=== PATIENT | female | born 1940 | race Caucasian/White ===

== ENCOUNTER 2019-11-27 10:05 | Outpatient (REF) | payer MEDICARE, SELFPAY ==
[2019-11-27 13:42] LABS: Hematocrit 45.3 % (37-47); Hemoglobin 14.8 g/dl (12.0-16.0); Mean Corpuscular HGB Conc 32.7 g/dl (31.0-35.0); Mean Corpuscular Volume 88.6 fL (80-98); Mean Platelet Volume 11.3 fL (9.4-12.3); Platelet Count 185 X10*3/uL (160-400); Red Blood Count 5.11 X10*6/uL (4.20-5.50); Red Cell Distribution Width 13.5 % (11.0-16.0); White Blood Count 4.7 X10*3/uL (4.8-10.8)
[2019-11-27 14:39] LABS: Alanine Aminotransferase 31 U/L (0-31); Albumin Level 4.5 g/dL (3.5-5.0); Alkaline Phosphatase 74 U/L (39-117); Anion Gap 13 (12-20); Aspartate Amino Transferase 30 U/L (5-31); Bilirubin Direct 0.5 mg/dL (0.0-0.5); Bilirubin Total 1.3 mg/dL (0.0-1.0); Blood Urea Nitrogen 14 mg/dL (9-16); Carbon Dioxide 31 mmol/L (22-29); Chloride 103 mmol/L (96-108); Cholesterol 150 mg/dL; Estimated Glomerular Filt Rate > 60; Glucose Fasting 108 mg/dL (60-99); HDL Cholesterol 45 mg/dL; LDL Cholesterol Calculated 74 mg/dl; Potassium 4.1 mmol/l (3.3-5.1); Sodium 143 mmol/L (135-145); Total Protein 7.2 g/dL (6.5-8.0); Triglycerides 158 mg/dL
== END 2019-11-27 10:06 | disposition home or self-care (01) ==
LOC: HO.10HDL 10:05
DX: I10 Essential (primary) hypertension (principal); E78.5 Hyperlipidemia, unspecified
CPT/HCPCS: 36415; 80053; 80061; 80076; 82248; 82306; 85027

== ENCOUNTER 2020-05-28 08:48 | Outpatient (REF) | payer MEDICARE, SELFPAY ==
[2020-05-28 10:12] LABS: MANUAL DIFF FLAG NO
[2020-05-28 10:19] LABS: Basophils Absolute Auto 0.1 X10*3/uL (0.0-0.2); Basophils Percent Auto 1.1 % (0-2); Eosinophils Absolute Auto 0.1 X10*3/uL (0.0-0.4); Eosinophils Percent Auto 1.2 % (0-4); Hematocrit 44.8 % (37-47); Hemoglobin 14.5 g/dl (12.0-16.0); Imm Gran Abs Auto 0.02 X10*3/uL (0.00-0.03); Imm Gran Pct Auto 0.3 % (0.0-0.4); Lymphocytes Absolute Auto 2.7 X10*3/uL (1.2-4.9); Lymphocytes Percent Auto 37.1 % (20-40); Mean Corpuscular HGB Conc 32.4 g/dl (31.0-35.0); Mean Corpuscular Hemoglobin 28.3 pg (27.0-33.0); Mean Corpuscular Volume 87.5 fL (80-98); Mean Platelet Volume 11.9 fL (9.4-12.3); Monocytes Absolute Auto 0.6 X10*3/uL (0.1-1.2); Monocytes Percent Auto 8.6 % (2-11); Neutrophils Absolute Auto 3.8 X10*3/uL (2.0-8.3); Neutrophils Percent Auto 51.7 % (45-73); Platelet Count 208 X10*3/uL (160-400); Red Blood Count 5.12 X10*6/uL (4.20-5.50); Red Cell Distribution Width 13.9 % (11.0-16.0); White Blood Count 7.4 X10*3/uL (4.8-10.8)
[2020-05-28 10:43] LABS: Alanine Aminotransferase 26 U/L (0-31); Albumin Level 4.5 g/dL (3.5-5.0); Alkaline Phosphatase 77 U/L (39-117); Anion Gap 16 (12-20); Aspartate Amino Transferase 26 U/L (5-31); Bilirubin Total 1.5 mg/dL (0.0-1.0); Blood Urea Nitrogen 16 mg/dL (9-16); Calcium 9.1 mg/dL (8.4-10.2); Carbon Dioxide 27 mmol/L (22-29); Chloride 104 mmol/L (96-108); Cholesterol 149 mg/dL; Estimated Glomerular Filt Rate > 60; Glucose Fasting 111 mg/dL (60-99); HDL Cholesterol 50 mg/dL; LDL Cholesterol Calculated 75 mg/dl; Potassium 3.6 mmol/L (3.3-5.1); Sodium 143 mmol/L (135-145); Total Protein 7.2 g/dL (6.5-8.0); Triglycerides 120 mg/dL
== END 2020-05-28 08:49 | disposition home or self-care (01) ==
LOC: HO.10HDL 08:48
PROVIDERS: Visit Provider Internal Medicine
DX: I10 Essential (primary) hypertension (principal); E78.00 Pure hypercholesterolemia, unspecified; M54.9 Dorsalgia, unspecified
CPT/HCPCS: 36415; 80053; 80061; 85025

== ENCOUNTER 2020-06-03 10:13 | Outpatient (REF) | payer MEDICARE, SELFPAY ==
[2020-06-03 13:48] LABS: Glucose Urine UA NEG (NEG); Leukocyte Esterase Urine TRACE (NEG); Nitrite Urine NEG (NEG); Urine Blood NEG (NEG); Urine Ketones NEG (NEG); Urine Protein NEG (NEG-TRACE)
[2020-06-03 13:49] LABS: Appearance Urine CLEAR; Color Urine YELLOW
[2020-06-03 13:58] LABS: RBC Urine 0 /HPF (0); Squamous Epithelial Cell Urine TRACE /LPF; WBC Urine 0-2 /HPF (0-4)
== END 2020-06-03 10:14 | disposition home or self-care (01) ==
LOC: HO.10HDL 10:13
PROVIDERS: Visit Provider Internal Medicine
DX: I10 Essential (primary) hypertension (principal); E78.00 Pure hypercholesterolemia, unspecified; M54.9 Dorsalgia, unspecified
CPT/HCPCS: 81001

== ENCOUNTER 2020-12-09 09:31 | Outpatient (REF) | payer MEDICARE, SELFPAY ==
[2020-12-09 10:44] LABS: Estimated Average Glucose 117 mg/dL; Hemoglobin A1c % 5.7 %
[2020-12-09 10:52] LABS: Anion Gap 14 (12-20); Blood Urea Nitrogen 14 mg/dL (9-16); Carbon Dioxide 26 mmol/L (22-29); Chloride 104 mmol/L (96-108); Estimated Glomerular Filt Rate > 60; Glucose Random 128 mg/dL (60-115); Potassium 3.5 mmol/L (3.3-5.1); Sodium 140 mmol/L (135-145)
== END 2020-12-09 09:32 | disposition home or self-care (01) ==
LOC: HO.10HDL 09:31
PROVIDERS: Visit Provider Internal Medicine
DX: I10 Essential (primary) hypertension (principal); R73.03 Prediabetes
CPT/HCPCS: 36415; 80048; 83036

== ENCOUNTER 2021-07-31 10:03 | Outpatient (REF) | payer MEDICARE, SELFPAY ==
--- NOTE | ~2021-07-31 | MM_ITS ---
EXAMINATION: MM SCREENING DIGITAL BREAST TOMOSYNTHESIS, BILATERAL CLINICAL INFORMATION: Screening. Asymptomatic. Left breast excisional biopsy. The lifetime risk of breast cancer based on the Tyrer-Cuzick Model is 2%. COMPARISON: Mammography: 12/02/2016 and studies dating back to 08/21/2011. TECHNIQUE: Digital breast tomosynthesis is performed in both the craniocaudal and mediolateral oblique views along with computer-aided detection (CAD). Synthesized 2D images are generated from the tomosynthesis. FINDINGS: There are scattered areas of fibroglandular density (ACR BI-RADS breast composition Category b). There is multiplicity and bilaterality of slowly increasing calcifications with no one more suspicious grouping identified. 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 MM/MM tomosynthesis screening BI IMPRESSION: No specific mammographic evidence of malignancy. ASSESSMENT: BI-RADS 2: Benign RECOMMENDATION: Routine annual mammography screening. This patient's information was entered into a reminder system with a target due date for their next mammogram.
--- NOTE | ~2021-07-31 | MM_ITS ---
EXAMINATION: BONE DENSITOMETRY CLINICAL INDICATION: Menopause. COMPARISON: This is the patient's baseline examination. TECHNIQUE: Using a [employer] DXA System (software version: 13.1) manufactured by [employer], dual-energy x-ray absorptiometry was performed of the lumbar spine and left hip. The images are of good technical quality. Summary results are attached. FINDINGS: AP SPINE L1-L2 (excluding L3 and L4): The data of L1-L4 has been changed to exclude the L3 and L4 vertebral bodies, because degenerative changes at these levels may cause overestimation of lumbar spine density. BMD 0.694 g/cm2, Z-score -2.0, T-score -3.9, osteoporosis. LEFT FEMUR, NECK: BMD 0.726 g/cm2, Z-score 0.0, T-score -2.2, osteopenia. LEFT FEMUR, TOTAL: BMD 0.783 g/cm2, Z-score 0.3, T-score -1.8, osteopenia. IDENTIFIED RISK FACTORS: Menopausal. HISTORY OF FRACTURE: None listed. MEDICATIONS: Calcium supplement and/or multivitamin. MM/XR DEXA axial skeleton IMPRESSION: 1. DIAGNOSIS: Osteoporosis based on the lowest T-score value of -3.9 in the lumbar spine applying World Health Organization criteria. 2. 10-YEAR FRACTURE RISK PREDICTION, FRAX: According to the guidelines, FRAX calculation should only be performed on patients in the osteopenia bone density category. Therefore, FRAX was not performed on this patient. 3. Treatment Recommendations: NOF guidelines recommend consideration for treatment in postmenopausal women and men age 50 and older presenting with the following: -A hip or vertebral (clinical or morphometric) fracture. -T-score less than or equal to -2.5 at the femoral neck or spine after appropriate evaluation to exclude secondary causes. -Low bone mass at the hip or spine and a 10-year fracture probability by FRAX of greater than or equal to 3% for hip fracture or greater than or equal to 20% for major osteoporotic fracture based on the [place] adapted WHO algorithm. 4. Other Recommendations: All treatment decisions require clinical judgment and consideration of individual patient factors, including patient preferences, comorbidities, previous drug use, risk factors not captured in the FRAX model (e.g. frailty, falls, vitamin D deficiency, increased bone turnover, interval significant decline in bone density) and possible under or overestimation of fracture risk by FRAX. Additional medical evaluation for secondary cause of low bone mineral density may be appropriate. FUTURE SCAN RECOMMENDATION: People with diagnosed cases of osteoporosis or at high risk for fracture should have regular bone mineral density tests. For patients eligible for Medicare, routine testing is allowed once every 2 years. The testing frequency can be increased to one year for patients who have rapidly progressing disease, those who are receiving or discontinuing medical therapy to restore bone mass, or have additional risk factors.
== END 2021-07-31 10:04 | disposition home or self-care (01) ==
LOC: HO.MAMMO 10:03
PROVIDERS: PCP Internal Medicine; Visit Provider Internal Medicine
DX: Z12.31 Encounter for screening mammogram for malignant neoplasm of breast (principal); Z13.820 Encounter for screening for osteoporosis; Z78.0 Asymptomatic menopausal state
CPT/HCPCS: 77063; 77067; 77080

== ENCOUNTER 2021-09-17 08:02 | Outpatient (REF) | payer MEDICARE, SELFPAY ==
[2021-09-17 10:38] LABS: MANUAL DIFF FLAG NO
[2021-09-17 10:45] LABS: Basophils Absolute Auto 0.1 X10*3/uL (0.0-0.2); Basophils Percent Auto 1.1 % (0-2); Eosinophils Absolute Auto 0.1 X10*3/uL (0.0-0.4); Eosinophils Percent Auto 1.6 % (0-4); Hematocrit 43.2 % (37.0-47.0); Hemoglobin 14.2 g/dl (12.0-16.0); Imm Gran Abs Auto 0.01 X10*3/uL (0.00-0.03); Imm Gran Pct Auto 0.2 % (0.0-0.4); Lymphocytes Absolute Auto 2.4 X10*3/uL (1.2-4.9); Lymphocytes Percent Auto 43.2 % (20-40); Mean Corpuscular HGB Conc 32.9 g/dl (31.0-35.0); Mean Corpuscular Hemoglobin 28.9 pg (27.0-33.0); Mean Corpuscular Volume 87.8 fL (80.0-98.0); Mean Platelet Volume 11.4 fL (9.4-12.3); Monocytes Absolute Auto 0.7 X10*3/uL (0.1-1.2); Monocytes Percent Auto 12.8 % (2-11); Neutrophils Absolute Auto 2.2 x10*3/uL (2.0-8.3); Neutrophils Percent Auto 41.1 % (45-73); Platelet Count 192 X10*3/uL (160-400); Red Blood Count 4.92 X10*6/uL (4.20-5.50); Red Cell Distribution Width 13.2 % (11.0-16.0); White Blood Count 5.5 X10*3/uL (4.8-10.8)
[2021-09-17 10:54] LABS: Estimated Average Glucose 114 mg/dL; Hemoglobin A1c % 5.6 %
[2021-09-17 10:55] LABS: Alanine Aminotransferase 43 U/L (0-31); Albumin Level 4.3 g/dL (3.5-5.0); Alkaline Phosphatase 92 U/L (39-117); Anion Gap 13 (12-20); Aspartate Amino Transferase 34 U/L (5-31); Bilirubin Total 1.2 mg/dL (0.0-1.0); Blood Urea Nitrogen 15 mg/dL (9-16); Calcium 8.7 mg/dL (8.4-10.2); Carbon Dioxide 28 mmol/L (22-29); Chloride 104 mmol/L (96-108); Cholesterol 160 mg/dL; Estimated Glomerular Filt Rate > 60; Glucose Fasting 109 mg/dL (60-99); HDL Cholesterol 50 mg/dL; LDL Cholesterol Calculated 81 mg/dl; Potassium 3.5 mmol/L (3.3-5.1); Sodium 141 mmol/L (135-145); Total Protein 7.1 g/dL (6.5-8.0); Triglycerides 145 mg/dL
== END 2021-09-17 08:03 | disposition home or self-care (01) ==
LOC: HO.10HDL 08:02
PROVIDERS: Visit Provider Internal Medicine
DX: I10 Essential (primary) hypertension (principal); E78.00 Pure hypercholesterolemia, unspecified; R73.03 Prediabetes
CPT/HCPCS: 36415; 80053; 80061; 83036; 85025

== ENCOUNTER → 2022-02-13 10:54 | Outpatient (BNVA) | payer MEDICARE, SELFPAY | PROVIDERS: PCP Internal Medicine; Visit Provider Surgery | DX: L98.9 Disorder of the skin and subcutaneous tissue, unspecified (principal) | CPT/HCPCS: 99202 ==

== ENCOUNTER 2022-03-12 12:47 | Outpatient (REF) | payer MEDICARE, SELFPAY ==
[2022-03-12 12:53] VITALS: BP 162/78; PULSE 107; RESP 16; TEMP 37.2; O2SAT 98; BMI 27.3
[2022-03-12 13:21] VITALS: BP 145/79; PULSE 97; RESP 16; O2SAT 98
--- NOTE | 2022-03-13 13:58 | P.OP_ITS ---
Operative Note Operative Note Date of Service: 03/13/22 Narrative: Preoperative diagnosis: Skin lesion nasal tip Postoperative diagnosis: Same Procedure: Punch biopsy skin lesion nasal tip Surgeon: Cb Orourke MD Manager Of Marketing: MATT Cohen Anesthesia: Local Sensorcaine 0.5% with epinephrine Indications for procedure: 81-year-old female patient presenting with a raised red lesion located at the tip of the nose to the right of midline measuring approximately 5 mm in diameter. She presents today for punch biopsy for diagnostic purposes. Operative findings: As noted above limit her lesion at but knows to the right of midline. Specimen: Punch biopsy of nose Estimated blood loss: 1 mL Complications: None Procedure details: Patient was brought to the minor surgery suite and placed in a supine sitting position. The site of surgeries confirmed by the patient on the tip of the nose. After assuring informed consent the skin was prepped with Betadine and draped in a sterile fashion. Local anesthesia was then infiltrated below the lesion. A 3.5 mm punch biopsy was then obtained of the margin of the lesion to the right of midline. The specimen was sent to pathology for further examination. Skin was then closed using a single interrupted 5 0 nylon suture. A sterile bandage and bacitracin ointment was then applied. The patient tolerated the procedure well. She was discharged to home in stable condition.
== END 2022-03-12 12:48 | disposition home or self-care (01) ==
LOC: HO.MS 12:47
PROVIDERS: PCP Internal Medicine; Visit Provider Surgery
PROC: (CPT 11104; principal; 2022-03-12 13:00)
DX: C44.311 Basal cell carcinoma of skin of nose (principal); L98.9 Disorder of the skin and subcutaneous tissue, unspecified
CPT/HCPCS: 11104; 88305

== ENCOUNTER → 2022-03-20 10:48 | Outpatient (BNVA) | payer MEDICARE, SELFPAY | PROVIDERS: PCP Internal Medicine; Referring Provider Internal Medicine; Visit Provider Surgery | DX: C44.311 Basal cell carcinoma of skin of nose (principal) | CPT/HCPCS: 99212 ==

== ENCOUNTER 2022-05-21 08:45 | Outpatient (REF) | payer MEDICARE, SELFPAY ==
[2022-05-21 11:28] LABS: Alanine Aminotransferase 24 U/L (0-31); Albumin Level 4.3 g/dL (3.5-5.0); Alkaline Phosphatase 77 U/L (39-117); Anion Gap 14 (12-20); Aspartate Amino Transferase 25 U/L (5-31); Bilirubin Total 1.6 mg/dL (0.0-1.0); Blood Urea Nitrogen 16 mg/dL (9-16); Calcium 9.4 mg/dL (8.4-10.2); Carbon Dioxide 27 mmol/L (22-29); Chloride 105 mmol/L (96-108); Estimated Glomerular Filt Rate > 60; Glucose Random 134 mg/dL (60-115); Potassium 3.6 mmol/L (3.3-5.1); Sodium 142 mmol/L (135-145); Total Protein 7.1 g/dL (6.5-8.0)
== END 2022-05-21 08:46 | disposition home or self-care (01) ==
LOC: HO.10HDL 08:45
PROVIDERS: Visit Provider Internal Medicine
DX: I10 Essential (primary) hypertension (principal); R79.89 Other specified abnormal findings of blood chemistry
CPT/HCPCS: 36415; 80053

== ENCOUNTER 2022-10-22 09:00 | Outpatient (REF) | payer MEDICARE, SELFPAY ==
[2022-10-22 10:48] LABS: MANUAL DIFF FLAG NO
[2022-10-22 10:56] LABS: Basophils Absolute Auto 0.1 X10*3/uL (0.0-0.2); Basophils Percent Auto 1.1 % (0-2); Eosinophils Absolute Auto 0.1 X10*3/uL (0.0-0.4); Eosinophils Percent Auto 0.8 % (0-4); Hematocrit 44.7 % (37.0-47.0); Hemoglobin 14.8 g/dl (12.0-16.0); Imm Gran Abs Auto 0.01 X10*3/uL (0.00-0.03); Imm Gran Pct Auto 0.2 % (0.0-0.4); Lymphocytes Absolute Auto 2.4 X10*3/uL (1.2-4.9); Lymphocytes Percent Auto 38.1 % (20-40); Mean Corpuscular HGB Conc 33.1 g/dl (31.0-35.0); Mean Corpuscular Volume 87.6 fL (80.0-98.0); Mean Platelet Volume 11.1 fL (9.4-12.3); Monocytes Absolute Auto 0.7 X10*3/uL (0.1-1.2); Monocytes Percent Auto 11.9 % (2-11); Neutrophils Percent Auto 47.9 % (45-73); Platelet Count 217 X10*3/uL (160-400); Red Cell Distribution Width 13.2 % (11.0-16.0); White Blood Count 6.2 X10*3/uL (4.8-10.8)
[2022-10-22 11:24] LABS: Estimated Average Glucose 108 mg/dL; Hemoglobin A1C 137.2376 umol/L; Hemoglobin A1c % 5.4 % (<6.0)
[2022-10-22 11:28] LABS: Anion Gap 12 (12-20); Blood Urea Nitrogen 16 mg/dL (9-16); Calcium 9.3 mg/dL (8.4-10.2); Carbon Dioxide 28 mmol/L (22-29); Chloride 107 mmol/L (96-108); Cholesterol 161 mg/dL (<200); Estimated Glomerular Filt Rate > 60; Glucose Random 103 mg/dL (60-115); Potassium 3.6 mmol/L (3.3-5.1); Sodium 143 mmol/L (135-145)
[2022-10-22 11:31] LABS: Vitamin D 25-OH Total 58.3 ng/mL (>30)
== END 2022-10-22 09:01 | disposition home or self-care (01) ==
LOC: HO.10HDL 09:00
PROVIDERS: Visit Provider Internal Medicine
DX: I10 Essential (primary) hypertension (principal); R73.03 Prediabetes; M81.0 Age-related osteoporosis without current pathological fracture
CPT/HCPCS: 36415; 80048; 82306; 82465; 83036; 85025

== ENCOUNTER 2024-06-28 13:09 | Outpatient (AMB) | payer MEDICARE, SELFPAY ==
--- NOTE | 2024-06-20 15:37 | MHC.PC.OV ---
Intake Visit Reasons: Routine Bee Producer Required: No Accompanied by: Self / Same As Patient Allergies Penicillins [PENICILLINS] Allergy (Intermediate, Unverified 03/20/22 10:58) RASH Sulfa (Sulfonamide Antibiotics) [SULFA (SULFONAMIDE ANTIBIOTICS)] Allergy (Intermediate, Unverified 03/20/22 10:58) RASH From DARVON Allergy (Intermediate, Uncoded 03/20/22 10:58) VOMITING Darvon Allergy (Unknown, Uncoded 03/20/22 10:58) vomiting Penicillin Allergy (Unknown, Uncoded 03/20/22 10:58) rash sulfa Allergy (Unknown, Uncoded 03/20/22 10:58) rash Tobacco use date assessed: 06/21/24 Fall risk assessment: No Falls in past year Last assessed Fall Risk: 06/21/24 Dental Screening Dental Screen Date: 06/28/24 Did you have a dental visit in the last 12 months?: Yes Did you have a dental problem in the last 6 months where you did not have access to dental care?: No [facility] Medical History Hypertension Osteopenia Osteoporosis Transaminitis Surgical History History of surgical biopsy (03/12/22) Family History Sister Breast cancer Social History Alcohol intake: never Patient Tobacco Use Status: Never used Tobacco Questionnaire PHQ-9 Over the last 2 weeks, how often have you been bothered by any of the following problems? 1. Little interest or pleasure in doing things: not at all 2. Feeling down, depressed, or hopeless: not at all 3. Trouble falling or staying asleep, or sleeping too much: not at all 4. Feeling tired or having little energy: not at all 5. Poor appetite or overeating: not at all 6. Feeling bad about yourself - or that you are a failure or have let yourself or your family down: not at all 7. Trouble concentrating on things, such as reading the newspaper or watching television: not at all 8. Moving or speaking so slowly that other people could have noticed. Or the opposite - being so fidgety or restless that you have been moving around a lot more than usual: not at all 9. Thoughts that you would be better off or of hurting yourself in some way: not at all Total score: 0 Source: Developed by Drs. Maycol Apple, Lisette Teixeira, Sg Schrader and colleagues, with an educational john from [employer]. AUDIT C Alcohol Use Questionnaire (AUDIT-C) 1. How often do you have a drink containing alcohol?: Never 3. How often do you have six or more drinks on one occasion?: Never Total Score: 0 RACHEL-7 AMB Questionnaire RACHEL-7 Date RACHEL - 7 assessed: 06/21/24 Feeling nervous, anxious, or on edge: 0 = Not at all Not being able to stop or control worryin = Not at all Worrying too much about different things: 0 = Not at all Trouble relaxin = Not at all Being so restless that it is hard to sit still: 0 = Not at all Becoming easily annoyed or irritable: 0 = Not at all Feeling afraid as if something awful might happen: 0 = Not at all Total RACHEL-7 score (0-4 normal; 5-9 mild; 10-14 moderate; 15-21 severe): 0 Source: Developed by Drs. Maycol Apple, Sg Randle and colleagues, with an educational john from [employer]. Physical exam (Primary Care) Tobacco/Smoking Status: Tobacco use Status Patient Tobacco Use Status Never used Tobacco 03/12/22 12:53 Coding
--- NOTE | 2024-06-28 13:14 | A.OFFPC_ITS ---
Vital Signs 06/28/24 13:15 Height 5 ft Weight 142 lb BMI 27.7 BP 142/80 H Blood Pressure Location Rt brachial Position Sitting Pulse 95 Pulse Source Pulse Oximeter Temp 97.8 F Temp Source Axillary Pulse Oximetry (%) 98 Oxygen Delivery Method Room Air Intake Visit Reasons: Routine Shirt Presser Required: No Accompanied by: Self / Same As Patient Allergies Penicillins [PENICILLINS] Allergy (Intermediate, Verified 06/28/24 13:19) RASH Sulfa (Sulfonamide Antibiotics) [SULFA (SULFONAMIDE ANTIBIOTICS)] Allergy (Intermediate, Verified 06/28/24 13:19) RASH From DARVON Allergy (Intermediate, Uncoded 03/20/22 10:58) VOMITING Darvon Allergy (Unknown, Uncoded 03/20/22 10:58) vomiting Penicillin Allergy (Unknown, Uncoded 03/20/22 10:58) rash sulfa Allergy (Unknown, Uncoded 03/20/22 10:58) rash Tobacco use date assessed: 06/28/24 Fall risk assessment: No Falls in past year Last assessed Fall Risk: 06/28/24 Dental Screening Dental Screen Date: 06/28/24 Did you have a dental visit in the last 12 months?: No Did you have a dental problem in the last 6 months where you did not have access to dental care?: No [facility] Medical History (Updated 06/28/24 @ 13:31 by Akin Terrazas MD) Generalized anxiety disorder Hypertension Transaminitis Osteopenia Osteoporosis Surgical History History of surgical biopsy (03/12/22) Family History (Updated 06/28/24 @ 13:22 by Kaitlin Eastman MA) Sister Breast cancer Mother No problems noted. Father No problems noted. Social History Housing: Other Alcohol intake: never Patient Tobacco Use Status: Never used Tobacco e-Cigarette/Vaping Use: Never Used service: No Current occupational status: retired Cognitive needs: No Hearing needs: Yes (bilateral hearing aids) Vision needs: Yes (rx glasses) Questionnaire PHQ-9 Over the last 2 weeks, how often have you been bothered by any of the following problems? 1. Little interest or pleasure in doing things: not at all 2. Feeling down, depressed, or hopeless: not at all 3. Trouble falling or staying asleep, or sleeping too much: not at all 4. Feeling tired or having little energy: not at all 5. Poor appetite or overeating: not at all 6. Feeling bad about yourself - or that you are a failure or have let yourself or your family down: not at all 7. Trouble concentrating on things, such as reading the newspaper or watching television: not at all 8. Moving or speaking so slowly that other people could have noticed. Or the opposite - being so fidgety or restless that you have been moving around a lot more than usual: not at all 9. Thoughts that you would be better off or of hurting yourself in some way: not at all Total score: 0 Source: Developed by Drs. Maycol Apple, Lisette Teixeira, Sg Schrader and colleagues, with an educational john from [employer]. Thrive Questionnaire Date Thrive assessed: 06/28/24 I am a: Patient Within the past 12 months, did the food you bought not last and you didn't have the money to get more?: Never true Within the past 12 months, did you worry whether your food would run out before you got money to buy more?: Never true Do you have trouble paying for medicines?: No Do you have trouble getting transportation to medical appointments?: No Do you have trouble paying your heating and electricity bill?: No Do you have trouble taking care of your child, family member or friend?: No Do you have trouble with day-to-day activities such as bathing, preparing meals, shopping, managing finances, etc.?: No Are you currently unemployed and looking for a job?: No Are you interested in more education?: No THRIVE Score: 0 AUDIT C Alcohol Use Questionnaire (AUDIT-C) 1. How often do you have a drink containing alcohol?: Never 3. How often do you have six or more drinks on one occasion?: Never Total Score: 0 RACHEL-7 AMB Questionnaire RACHEL-7 Date RACHEL - 7 assessed: 06/28/24 Feeling nervous, anxious, or on edge: 0 = Not at all Not being able to stop or control worryin = Not at all Worrying too much about different things: 0 = Not at all Trouble relaxin = Not at all Being so restless that it is hard to sit still: 0 = Not at all Becoming easily annoyed or irritable: 0 = Not at all Feeling afraid as if something awful might happen: 0 = Not at all Total RACHEL-7 score (0-4 normal; 5-9 mild; 10-14 moderate; 15-21 severe): 0 Source: Developed by Drs. Maycol Apple, Lisette Teixeira, Sg Schrader and colleagues, with an educational john from [employer]. Physical exam (Primary Care) Vital Signs: Last Vital Signs Temp 97.8 F 06/28/24 13:15 Pulse 95 06/28/24 13:15 BP 142/80 H 06/28/24 13:15 Pulse Ox 98 06/28/24 13:15 Oxygen Delivery Method Room Air 06/28/24 13:15 BMI result Body Mass Index 27.7 Tobacco/Smoking Status: Tobacco use Status Tobacco use date assessed 06/28/24 06/28/24 13:23 Patient Tobacco Use Status Never used Tobacco 06/28/24 13:23 e-Cigarette/Vaping Use Never Used 06/28/24 13:23 PHQ-9: PHQ-9 Score PHQ-9: Total score 0 06/28/24 13:23 Thrive Assessment: Date of Thrive Assessment Date Thrive assessed 06/28/24 06/28/24 13:23 Coding Level of Care Code New Pt Level 4 (78992) Complex EM visit Add On G2211 Diagnoses Hypertension I10 Generalized anxiety disorder F41.1 Assessment & Plan Assessment & Plan (1) Hypertension: Code(s): I10 - Essential (primary) hypertension Category: Medical Plan: BP in range. Continue meds at same dosage. (2) Generalized anxiety disorder: Code(s): F41.1 - Generalized anxiety disorder Category: Medical Plan: On lorazepam, advised her to decrease to once a day Plan History of Present Illness The patient is an 83-year-old female presenting with discussions regarding the management of her anxiety medication and symptoms of frequent urination. She takes alprazolam regularly, currently at a dose of two tablets at night. She indicated a willingness to attempt decreasing this to one tablet at night and noted awareness of its habit-forming nature. The patient expressed a general satisfaction with her management under these considerations. Frequent urination was discussed, which the patient attributes to her water consumption. No accompanying symptoms such as dysuria or hematuria were reported. The patient's environment, living in elderly housing with increased anxiety levels, was identified as a contributor to her stress. Social History - Housing: Resides in elderly housing in [place]; reports high levels of anxiety due to the environment. - Family: Receives assistance from children and grandchildren with meals and laundry. - Activity: Drives occasionally but relies on family for transportation. Review of Systems - Genitourinary: Reports frequent urination. - Neurological/Psychiatric: Reports anxiety, currently managed with alprazolam. Physical Exam General: Cooperative and healthy appearing Nutritional Appearance: Well nourished Orientation/consciousness: Patient oriented x3 Limitations: No limitations Head: Normal to inspection General: Appearance normal, both eyes and all related structures Neck: Normal visual inspection Chest: Normal palpation of entire chest wall Respiratory: N ormal respiratory effort Neurology: Patient oriented x3, but reports anxiety and is currently taking alprazolam regularly. Results Plan 1. Anxiety - Decrease alprazolam dosage to one tablet at night. - Evaluate for withdrawal or efficacy issues and report any concerns. 2. Frequent Urination Polyuria - Attributed to high fluid intake. - Obtain blood work; follow up if symptoms persist or changes occur. Discussion Notes I discussed with the patient the current regimen of her alprazolam and the proposed reduction to one tablet per night. We talked about the potential habit- forming nature of alprazolam and the importance of attempting to reduce her dosage. The patient is aware and understands to contact me should she experience any changes in her symptoms or require adjustment. Regarding her frequent urination, I explained the direct correlation with high water intake, and no immediate intervention is necessary unless there is a change in urinary habits or associated symptoms. I advised her about performing routine blood tests and following up as needed. Patient Instructions - Start taking one alprazolam tablet at night instead of two. Let me know how you feel. - Drink plenty of water, but make sure it?s at a comfortable level. - Complete the suggested routine blood work soon. - Call us if you have any issues with your anxiety or urination. Orders: Orders Basic Metabolic Panel Today I10 - Essential (primary) hypertension Lipid Panel Today I10 - Essential (primary) hypertension Liver Panel Today I10 - Essential (primary) hypertension Thyroid Stimulating Hormone Today I10 - Essential (primary) hypertension UA and rflx microscopic Today I10 - Essential (primary) hypertension Complete Blood Count no Diff Today I10 - Essential (primary) hypertension
[2024-06-28 13:15] VITALS: BP 142/80; PULSE 95; TEMP 36.6; O2SAT 98; BMI 27.7
== END 2024-06-28 13:38 | disposition home or self-care (01) ==
LOC: HO.HMCHD 13:10
PROVIDERS: PCP Internal Medicine; Visit Provider Internal Medicine
DX: I10 Essential (primary) hypertension (principal); F41.1 Generalized anxiety disorder

== ENCOUNTER → 2024-06-28 13:09 | Outpatient (BNVA) | payer MEDICARE, SELFPAY | PROVIDERS: PCP Internal Medicine; Visit Provider Internal Medicine | DX: I10 Essential (primary) hypertension (principal); F41.1 Generalized anxiety disorder | CPT/HCPCS: 99202 ==

== ENCOUNTER 2024-12-08 08:04 | Outpatient (REF) | payer MEDICARE, SELFPAY ==
--- OUTSIDE RECORDS SUMMARY | 2024-12-08 08:08 | XMS_ITS | Clinical Summary ---
Author Organization [facility] Address [address] [address] Phone Care Team Providers Care Hse Advisor Name Role Phone Oziel Russell MD Primary Care Provider Allergies Active Allergy Reactions Criticality Noted Date Comments Propoxyphene 01/25/2024 Penicillins 01/25/2024 Medications amLODIPine (NORVASC) 10 MG tablet Take 1 tablet by mouth every morning. 01/12/2024 Active atorvastatin (LIPITOR) 80 MG tablet Take 1 tablet by mouth every morning. 01/12/2024 Active ketorolac (ACULAR) 0.5 % ophthalmic solution 01/03/2024 Active LORazepam (ATIVAN) 0.5 MG tablet 01/22/2024 Active moxifloxacin (VIGAMOX) 0.5 % ophthalmic solution 12/22/2023 Active aspirin 81 MG EC tablet Take 81 mg by mouth daily. Active vitamin A,C,E-iuaa-uwzzb r (OCUVITE PRESERVE) 2,148 mcg-113 mg-45 mg-17.4mg Tab Take 1 tablet by mouth daily. Active Active Problems No known active problems Social History Tobacco Use Types Packs/Day Years Used Date Smoking Tobacco: Never Smokeless Tobacco: Never Tobacco Cessation:Counseling Given: Not Answered Education Answer Date Recorded Are you interested in more education? Not on melissa e 01/25/2024 Are you concerned about learning? Not on file 01/25/2024 No 01/25/2024 No 01/25/2024 Digital Access Answer Date Recorded No 01/25/2024 No 01/25/2024 Reliable internet access at home? Not on file 01/25/2024 Device with a working camera? Not on file Comments Unknown Sex and Gender Information Value Date Recorded Sex Assigned at Not on file Legal Sex Female 10:12 PM EDT Gender Identity Not on file Sexual Orientation Not on file Last Filed Vital Signs Vital Sign Reading Time Taken Comments Blood Pressure 147/88 01/25/2024 12:11 PM EST Pulse 94 01/25/2024 12:11 PM EST Temperature 36.7 C (98 F) 01/25/2024 12:11 PM EST Respiratory Rate 16 01/25/2024 12:11 PM EST Oxygen Saturation 96% 01/25/2024 12:11 PM EST Inhaled Oxygen Concentration - - Weight - - Height - - Body Mass Index - - Plan of Treatment Health Maintenance Due Date Last Done Comments Adult Td,Tdap Booster 1940 DEPRESSION SCREENING 1952 PNEUMOCOCCAL VACCINES (50+ years) (1 of 1 - PCV) 1990 ZOSTER VACCINES (1 of 2) 1990 OSTEOPOROSIS SCREENING INITI AL (ONE-TIME) 2005 RSV VACCINE (1 - 1-dose 75+ series) 07/06/2015 INFLUENZA VACCINE (#1) 2024 COVID-19 VACCINE (4 - 2024-2 6 season) 2024 12/17/2020, 04/16/2020, 03/19/2020 HEPATITIS A VACCINES Aged Out No long er eligible based on patient's age to complete this topic HIB VACCINES Aged Out No longer eligi ble based on patient's age to complete this topic MENINGOCOCCAL VACCINES (ACWY) Aged Out No longer eligible based on patient's age to complete this topic MENINGOCOCCAL VACCINES (B) Aged Out N o longer eligible based on patient's age to complete this topic Medical Devices Not on file Insurance [employer] MEDEX SUPPLEMENT MEDICARE PART A & B [employer] MEDEX SUPPLEMENT MEDICARE PART A & B MEDICARE PART A & [place] [address] [place] [address] MEDEX SUPPLEMENT MEDICARE PART A & B [employer] MEDEX SUPPLEMENT MEDICARE PART A & B [employer] MEDEX SUPPLEMENT MEDICARE PART A & B Care Teams Hse Advisor Relationship Specialty Start Date End Date Oziel Russell MD [address] [place] [address] [place] [address] PCP - General Internal Medicine 01/25/24 Additional Source Comments The information contained in this document represents components of the legal health record. It is not the complete legal health record.[facility]
[2024-12-08 08:59] LABS: Hematocrit 45.6 % (37.0-47.0); Hemoglobin 14.8 g/dl (12.0-16.0); Mean Corpuscular HGB Conc 32.5 g/dl (31.0-35.0); Mean Corpuscular Hemoglobin 29.0 pg (27.0-33.0); Mean Corpuscular Volume 89.2 fL (80.0-98.0); NRBC Abs Auto 0.000 X10*3/uL (0.0-0.012); NRBC Pct Auto 0.0 /100WBC (0.0-0.2); Platelet Count 172 X10*3/uL (160-400); Red Blood Count 5.11 X10*6/uL (4.20-5.50); White Blood Count 7.1 X10*3/uL (4.8-10.8)
[2024-12-08 09:36] LABS: Alanine Aminotransferase 36 U/L (0-31); Albumin Level 4.7 g/dL (3.5-5.0); Alkaline Phosphatase 81 U/L (39-117); Anion Gap 15 (12-20); Aspartate Amino Transferase 41 U/L (5-31); Blood Urea Nitrogen 13 mg/dL (9-16); Calcium 9.4 mg/dL (8.4-10.2); Carbon Dioxide 27 mmol/L (22-29); Chloride 106 mmol/L (96-108); Cholesterol 160 mg/dL (<200); Estimated Glomerular Filt Rate > 60; HDL Cholesterol 48 mg/dL (>40); Potassium 3.5 mmol/L (3.3-5.1); Sodium 144 mmol/L (135-145); Total Protein 7.5 g/dL (6.5-8.0); Triglycerides 219 mg/dL (<150)
[2024-12-08 09:54] LABS: Thyroid Stimulating Hormone 2.61 uIU/mL (0.32-4.0)
== END 2024-12-08 08:05 | disposition home or self-care (01) ==
LOC: HO.LAB 08:04
PROVIDERS: PCP Internal Medicine; Visit Provider Internal Medicine
DX: I10 Essential (primary) hypertension (principal)
CPT/HCPCS: 36415; 80048; 80061; 80076; 84443; 85027

== ENCOUNTER 2024-12-11 10:21 | Outpatient (REF) | payer MEDICARE, SELFPAY ==
[2024-12-11 10:56] LABS: Appearance Urine Turbid; Glucose Urine UA Negative (Negative); PH 7.5 (5.0-9.0); Specific Gravity - Urine 1.010 (1.005-1.025); UMIC TRIGGER UA YES
--- OUTSIDE RECORDS SUMMARY | 2024-12-11 12:24 | XMS_ITS | Clinical Summary ---
Author Organization [facility] Address [address] [address] Phone Care Team Providers Care Development Officer Name Role Phone Oziel Russell MD Primary [...] 81 mg by mouth daily. Active vitamin A,C,X-gazh-agvlx r (OCUVITE PRESERVE) 2,148 mcg-113 mg-45 mg-17.4mg [...] MEDEX SUPPLEMENT MEDICARE PART A & B [employer] MEDEX SUPPLEMENT MEDICARE PART A & B MEDICARE PART A & [place] [address] MEDEX SUPPLEMENT MEDICARE PART A & B [employer] MEDEX SUPPLEMENT MEDICARE PART A & B [place] [employer] MEDEX SUPPLEMENT MEDICARE PART A & B Care Teams Development Officer Relationship Specialty Start Date End Date Oziel Russell MD [address] [place] [address] [place] [address] PCP - General Internal Medicine 01/25/24 Additional Source Comments The information contained in this document represents components of the legal health record. It is not the complete legal health record.[facility]
== END 2024-12-11 10:22 | disposition home or self-care (01) ==
LOC: HO.LNP 10:21
PROVIDERS: Visit Provider Internal Medicine
DX: I10 Essential (primary) hypertension (principal)
CPT/HCPCS: 81001; 81003